=== PATIENT | male | born 1965 ===

== ENCOUNTER → 2022-09-11 | Outpatient (CLI) | payer MEDICARE, OTHER ==
[~2022-09-11] MED LIST: CYCL10 PO; NAPR500 PO; OXYACE5T PO
[2022-09-18 16:11] LABS: CARBOXY-THC 224 (.)
== END ==
LOC: LAB SHORT 16:49 → LAB 16:49
PROVIDERS: Family Medicine
DX: Z79.899 Other long term (current) drug therapy (principal)
CPT/HCPCS: G0480

== ENCOUNTER → 2024-02-22 | Outpatient (CLI) | payer MEDICARE, OTHER | END | disposition home or self-care (01) | LOC: LAB 12:40 → LAB SHORT 12:40 | DX: L03.115 Cellulitis of right lower limb (principal); R60.0 Localized edema ==

== ENCOUNTER 2024-11-18 01:44 | Inpatient (IN) | payer MEDICARE, OTHER ==
[~2024-11-18] VITALS: Ht 170.2 cm; Wt 91.1 kg
[2024-11-18] MEDS ORDERED: Aspirin 81 MG Chew PO ONE (02:05)
[2024-11-18] MEDS ORDERED: BUPRENORPHINE HC2 MG SL (02:05)
[2024-11-18 02:07] LABS: Base Excess Venous 6.9 mmol/L; Bicarbonate Venous 27.9 mmol/L (24.0-30.0); PCO2 Venous 59.8 mmHg (38-42); pH Blood Venous 7.35 (7.34-7.37)
[2024-11-18 02:27] LABS: BASOPHILS ABSOLUTE AUTO 0.03 K/mm3 (0.00-0.23); BASOPHILS PERCENT AUTO 0 % (0-2); EOSINOPHILS ABSOLUTE AUTO 0.19 K/mm3 (0.00-0.68); EOSINOPHILS PERCENT AUTO 2 % (0-6); Hematocrit 54.6 % (37.0-53.0); Hemoglobin 17.9 g/dL (13.5-17.5); IMMATURE GRAN ABSOLUTE AUTO 0.03 K/mm3 (0.00-0.10); IMMATURE GRAN PERCENT AUTO 0 % (0-1); LYMPHOCYTES ABSOLUTE AUTO 2.53 K/mm3 (0.84-5.20); LYMPHOCYTES PERCENT AUTO 20 % (21-46); MONOCYTES ABSOLUTE AUTO 1.16 K/mm3 (0.16-1.47); MONOCYTES PERCENT AUTO 9 % (4-13); Magnesium, Blood 1.8 mg/dL (1.6-2.4); Mean Corpuscular HGB 30.8 pg (26.0-34.0); Mean Corpuscular HGB Conc 32.8 g/dL (31.5-36.5); Mean Corpuscular Volume 94 fL (80-100); Mean Platelet Volume 10.2 fL (9.1-12.4); NEUTROPHILS ABSOLUTE AUTO 8.45 K/mm3 (1.96-9.15); NEUTROPHILS PERCENT AUTO 68 % (41-73); Platelet Count 229 K/mm3 (150-400); RDW Coefficient Variation 13.2 % (11.7-14.2); RDW Standard Deviation 45.5 fL (35.1-46.3); Red Blood Cell Count 5.82 M/mm3 (4.30-5.90); White Blood Cell Count 12.39 K/mm3 (4.00-11.30)
[2024-11-18 02:44] LABS: Albumin, Blood 3.5 g/dL (3.4-5.0); Albumin/Globulin Ratio 0.9 (0.8-1.8); Bilirubin, Total 0.6 mg/dL (0.1-1.0); Bun/Creatinine Ratio 14.9 (12.0-20.0); Calcium, Blood 8.9 mg/dL (8.5-10.1); Creatinine, Blood 0.94 mg/dL (0.60-1.20); Globulin, Blood 3.8 g/dL (2.2-4.0); Potassium, Blood 4.5 mmol/L (3.5-5.5); Total Protein, Blood 7.3 g/dL (6.4-8.2)
[2024-11-18 03:33] LABS: CORONAVIRUS COVID-19 AG Negative (NEGATIVE); INFLUENZA A AG Negative (NEGATIVE); INFLUENZA B AG Negative (NEGATIVE)
[2024-11-18] MEDS ORDERED: Nitroglycerin 0.4 MG SUBL SL PRN (04:20)
[2024-11-18] MEDS ORDERED: FLU VACC TS2024-25(6MOS UP)/PF 45 MCG/0.5 ML SYRINGE IM ONE (04:20)
[2024-11-18] MEDS ORDERED: Ondansetron HCl 2 MG / ML 2ML Vial IV PRN (04:20)
[2024-11-18 05:45] LABS: BASOPHILS ABSOLUTE AUTO 0.03 K/mm3 (0.00-0.23); BASOPHILS PERCENT AUTO 0 % (0-2); EOSINOPHILS ABSOLUTE AUTO 0.08 K/mm3 (0.00-0.68); EOSINOPHILS PERCENT AUTO 1 % (0-6); Hematocrit 51.9 % (37.0-53.0); Hemoglobin 17.2 g/dL (13.5-17.5); IMMATURE GRAN ABSOLUTE AUTO 0.03 K/mm3 (0.00-0.10); IMMATURE GRAN PERCENT AUTO 0 % (0-1); LYMPHOCYTES ABSOLUTE AUTO 1.08 K/mm3 (0.84-5.20); LYMPHOCYTES PERCENT AUTO 9 % (21-46); MONOCYTES ABSOLUTE AUTO 1.15 K/mm3 (0.16-1.47); MONOCYTES PERCENT AUTO 10 % (4-13); Mean Corpuscular HGB 30.9 pg (26.0-34.0); Mean Corpuscular HGB Conc 33.1 g/dL (31.5-36.5); Mean Corpuscular Volume 93 fL (80-100); Mean Platelet Volume 9.9 fL (9.1-12.4); NEUTROPHILS ABSOLUTE AUTO 9.49 K/mm3 (1.96-9.15); NEUTROPHILS PERCENT AUTO 80 % (41-73); Platelet Count 193 K/mm3 (150-400); RDW Coefficient Variation 13.1 % (11.7-14.2); RDW Standard Deviation 45.1 fL (35.1-46.3); Red Blood Cell Count 5.57 M/mm3 (4.30-5.90); White Blood Cell Count 11.86 K/mm3 (4.00-11.30)
[2024-11-18 06:14] LABS: Alanine Aminotransfer (ALT/SGP 20 U/L (12-78); Albumin, Blood 3.3 g/dL (3.4-5.0); Alk Phos 66 U/L (50-136); Anion Gap 7 mmol/L (3-11); Aspartate Aminotrans (AST/SGOT 21 U/L (12-37); Bilirubin, Total 0.6 mg/dL (0.1-1.0); Blood Urea Nitrogen 12 mg/dL (8-24); Bun/Creatinine Ratio 16.7 (12.0-20.0); CHOL/HDL RATIO 2.1; CO2, Blood 33 mmol/L (21-32); Calcium, Blood 8.6 mg/dL (8.5-10.1); Chloride, Blood 105 mmol/L (98-108); Cholesterol 188 mg/dL (50-200); Creatinine, Blood 0.72 mg/dL (0.60-1.20); Globulin, Blood 3.3 g/dL (2.2-4.0); Glomerular Filtration Rate 106 (60-); Glucose, Blood 147 mg/dL (70-99); HDL Cholesterol 89 mg/dL (>39); LDL/HDL RATIO 0.9; Low Density Lipoprotein Chol 84 mg/dL (0-110); Magnesium, Blood 1.7 mg/dL (1.6-2.4); Potassium, Blood 4.6 mmol/L (3.5-5.5); Sodium, Blood 140 mmol/L (136-145); Thyroid Stimulating Hormone 0.692 uIU/mL (0.360-4.800); Total Protein, Blood 6.6 g/dL (6.4-8.2); Triglycerides 74 mg/dL (30-160); Very Low Density Lipoprot Chol 14 mg/dL (6-32)
[2024-11-18] MEDS ORDERED: Aspirin 81 MG Chew PO SCH (09:00)
[2024-11-18 12:56] VITALS: BP 142/80
[2024-11-18] MEDS ORDERED: IBUP800 PO (13:02)
[2024-11-18] MEDS ORDERED: ALPR1 PO (13:03)
--- NOTE | 2024-11-18 14:37 | NUR ---
NOTE: THIS NURSE GAVE PT'S SON, RENE, AN UPDATE. PT SAID IT WAS OKAY TO GIVE INFORMATION
[2024-11-18] MEDS ORDERED: ChlordiazePOXIDE 25 MG Cap PO PRN (15:45)
[2024-11-18] MEDS ORDERED: LORazepam 2 MG/ML 1ML Injection IV PRN (15:45)
[2024-11-18] MEDS ORDERED: Thiamine HCl 100 MG Tab PO SCH (16:00)
[2024-11-18] MEDS ORDERED: Folic Acid 1 MG TAB PO SCH (16:00)
[2024-11-18 16:56] VITALS: BP 167/97
[2024-11-18 16:57] VITALS: BP 163/98
[2024-11-18] MEDS ORDERED: buprenorphine HCL 2 MG TAB.SUBL SL SCH (17:00)
[2024-11-18] MEDS ORDERED: buprenorphine HCL 2 MG TAB.SUBL SL ONE (17:25)
--- NOTE | 2024-11-18 17:52 | NUR ---
SHIFT SUMMARY PT AOX4, SBA BUT INDEPENDENT AT HOME. CALLS AND MAKES NEEDS KNOWN. CIWAS IN PROGRESS. PT HAS HAD NO CP SINCE ADMIT TO THE FLOOR, NO SOB. FAMILY UPDATED. FRIEND AND DAUGHTER AT THE BS. HEPARIN DRIP ORDERED, WAITING ON LAB RESULTS AND PHARMACY TO INITIATE. PT REPOSITIONS SELF IN BED, NO ACUTE EVETS PER TELE SINCE THE ADMIT. CALL LIGHT WITHIN REACH, BED LOCKED AND IN THE LOWEST POSITION. WILL REPORT TO ONCOMING NURSE.
[2024-11-18] MEDS ORDERED: Etomidate 2MG / ML 10ML Vial IV ONE (18:19)
[2024-11-18] MEDS ORDERED: Rocuronium Bromide 10 MG/ML 5ML Injection IV ONE (18:19)
[2024-11-18] MEDS ORDERED: Midazolam HCl 1MG / ML 2ML Vial IV ONE (18:19)
[2024-11-18 18:24] LABS: Anti-Xa UFH, PHA Monitoring <0.10 IU/mL; International Normalized Ratio 1.06; Prothrombin Time Results 11.3 Sec (9.7-11.5)
[2024-11-18] MEDS ORDERED: Heparin Sodium 5000 Units/ML 1ML MDV IV ONE (18:30)
[2024-11-18] MEDS ORDERED: Heparin Sodium,Porcine/0.5 NS 500 ML IV SCH (18:30)
[2024-11-18 21:08] VITALS: BP 153/86
[2024-11-19] VITALS (54 sets, daily range): BP systolic 135–198; BP diastolic 79–138
[2024-11-19 01:10] LABS: Hematocrit 54.7 % (37.0-53.0); Hemoglobin 17.4 g/dL (13.5-17.5); Mean Corpuscular HGB 30.6 pg (26.0-34.0); Mean Corpuscular HGB Conc 31.8 g/dL (31.5-36.5); Mean Corpuscular Volume 96 fL (80-100); Mean Platelet Volume 10.3 fL (9.1-12.4); Platelet Count 193 K/mm3 (150-400); RDW Coefficient Variation 13.1 % (11.7-14.2); RDW Standard Deviation 46.9 fL (35.1-46.3); Red Blood Cell Count 5.69 M/mm3 (4.30-5.90); White Blood Cell Count 9.56 K/mm3 (4.00-11.30)
[2024-11-19 01:29] LABS: Bun/Creatinine Ratio 15.4 (12.0-20.0); Calcium, Blood 9.2 mg/dL (8.5-10.1); Creatinine, Blood 0.71 mg/dL (0.60-1.20); Potassium, Blood 5.5 mmol/L (3.5-5.5)
[2024-11-19] MEDS ORDERED: Dose Adjust by Pharmacy XX STA ×3 (01:42→19:04)
--- NOTE | 2024-11-19 05:41 | NUR ---
SHIFT SUMMARY 59 YR M ADMITTED ON 11/18/24. FULL CODE. PT HAS FELT PROGRESSIVELY WORSE SINCE THE BEGINNING OF THIS SHIFT. HE HAS BEEN MEDICATED THREE TIMES PER CIWA SCORES. HE HAS SLEPT OFF AND ON THROUGHOUT THIS SHIFT BUT IS AGITATED AND PAINFUL WHEN HE WAKES. HE C/O HEADACHE, N/V. HE YELLS OUT TO GET STAFF ATTENTION RATHER THAN USING THE CALL LIGHT SUGGESTED. HEPARIN HAS BEEN INFUSING ALL SHIFT AND RATE STAYED THE SAME AFTER LABS THIS A.M. WILL CONTINUE TO MONITOR AND REPORT TO DAY SHIFT. BED IN LOW POSITION AND CALL LIGHT IN REACH.
[2024-11-19] MEDS ORDERED: Heparin Sodium 5000 Units/ML 1ML MDV IV ONE (08:35)
[2024-11-19] MEDS ORDERED: Enoxaparin 40 MG/0.4 ML SYR SC SCH (09:00)
[2024-11-19] MEDS ORDERED: Metoprolol Tartrate 1 MG/ML 5 ML VIAL IV ONE (10:25)
[2024-11-19] MEDS ORDERED: Metoprolol Tartrate 1 MG/ML 5 ML VIAL IV STA (10:28)
[2024-11-19] MEDS ORDERED: Metoprolol Tartrate 1 MG/ML 5 ML VIAL IV PRN (10:35)
[2024-11-19 10:49] LABS: Base Excess Venous 6.4 mmol/L; Bicarbonate Venous 24.6 mmol/L (24.0-30.0); PCO2 Venous > 105 mmHg (38-42)
[2024-11-19 10:50] LABS: pH Blood Venous 7.11 (7.34-7.37)
--- NOTE | 2024-11-19 11:17 | NUR ---
ARRIVAL TO ICU/INTUBATION 1117: ARRIVAL TO ICU 15. PT ON BIPAP 14/8/80% 1120: DR REA AT BEDSIDE. 1133: DR REA AND RT AT HEAD OF BED IN PREPARATION FOR INTUBATION. 30MG ETOMIDATE ADMINISTERED. 1136: 100MG LORENZO ADMINISTERED. POSITIVE COLOR CHANGE. 8.0/26CM AT UPPER TEETH. 1139: 4MG VERSED ADMINISTERED 1145: VENT SETTINGS AC/VC 20/450/5/100% 1146: OG PLACED 1156: CXR COMPLETE. PLACEMENT VERIFIED BY DR REA
[2024-11-19] MEDS ORDERED: propofoL 100 ML IV ONE (11:20)
[2024-11-19] MEDS ORDERED: propofoL 100 ML IV SCH (11:25)
[2024-11-19] MEDS ORDERED: buprenorphine HCL 2 MG TAB.SUBL SL SCH (12:00)
[2024-11-19] MEDS ORDERED: Nitroglycerin/D5W 250 ML IV SCH (12:35)
[2024-11-19 12:53] LABS: Base Excess Venous 8.1 mmol/L; Bicarbonate Venous 29.3 mmol/L (24.0-30.0); PCO2 Venous 63.2 mmHg (38-42); pH Blood Venous 7.34 (7.34-7.37)
[2024-11-19] MEDS ORDERED: FentaNYL Citrate 50 MCG/ML 2 ML Injection ONE (12:58)
[2024-11-19] MEDS ORDERED: Midazolam HCl 1MG / ML 2ML Vial ONE (13:09)
[2024-11-19] MEDS ORDERED: FentaNYL Citrate 50 MCG/ML 2 ML Injection IV PRN (13:15)
[2024-11-19] MEDS ORDERED: Midazolam HCl 1MG / ML 2ML Vial IV PRN (13:15)
[2024-11-19] MEDS ORDERED: Doxycycline Hyclate 100 MG in Dextrose 5% 250 ML IV SCH (14:58)
[2024-11-19] MEDS ORDERED: CefTRIAXone Sodium 1,000 MG in NS 100 ML IV SCH (14:58)
--- NOTE | 2024-11-19 15:07 | NUR ---
UPDATE PROVIDED TO FAMILY S/P RAPID RESPONSE AND TRANSFER TO ICU SPOKE WITH PT'S SON RENE GAITAN ([phone]), DTR MARIUSZ GAITAN ([phone]) AND FRIEND LISA SAM ([phone]) ALL BY PHONE. UPDATED ON PT'S NEED TO BE TRANSFERRED TO ICU 15 AND CHANGE IN RESPIRATORY STATUS, REQUIRING INTUBATION FOR AIRWAY SUPPORT. LISA REPORTS SHE IS FEEDING AND CHECKING ON KING'S DOG "GHOST". SHE WILL CONTINUE TO CARE FOR PT'S DOG. PC TO REMAIN AVAILABLE NEEDED.
--- NOTE | 2024-11-19 18:37 | NUR ---
SHIFT SUMMARY PT REMAINED INTUBATED AND SEDATED T/O ENTIRETY OF SHIFT. UNABLE TO FOLLOW COMMANDS. AFEBRILE. PROPOFOL INFUSING AT 40 MCG/KG/MIN, RASS -4. CONTINUOUS CARDIAC MONITORING IN PLACE SHOWS SR, BP STABLE WITH NITRO INFUSING AT 10 MCG/MIN. VENT SETTINGS A/C VC 20/450/5/35%. ETT 8.0, 26 AT THE GUMS. O2 SATURATIONS > 92%. TEMP SANTORO PLACED THIS SHIFT WITH TEA COLORED URINE OUT. NO BM THIS SHIFT. PIV TO RAC, LHAND. POWERGLIDE TO MUKUND. HEPARIN INFUSING AT 22 U/KG/HR. SON AND DAUGHTER BOTH TO BEDSIDE DURING THIS SHIFT, UPDATED ON PLAN OF CARE. WILL CONTINUE TO MONITOR AND REPORT TO ONCOMING RN.
[2024-11-19 19:18] LABS: Bun/Creatinine Ratio 18.3 (12.0-20.0); Calcium, Blood 9.1 mg/dL (8.5-10.1); Creatinine, Blood 0.71 mg/dL (0.60-1.20); Potassium, Blood 3.7 mmol/L (3.5-5.5)
[2024-11-19] MEDS ORDERED: Cetylpyridinium Chloride 1 EA MISC MT SCH (20:00)
[2024-11-19] MEDS ORDERED: Midazolam HCL 50 MG in NS 40 ML IV PRN (22:45)
[2024-11-20] VITALS (94 sets, daily range): BP systolic 113–179; BP diastolic 04–131
[2024-11-20] MEDS ORDERED: Hydrogen Peroxide 1.5 % Solution MT SCH
[2024-11-20 00:22] LABS: Acinetobacter baumannii DNA Not Detected copy/mL (NOT DETECT); Enterobacter cloacae DNA Not Detected copy/mL (NOT DETECT); Escherichia coli DNA Not Detected copy/mL (NOT DETECT); Haemophilus influenzae DNA Detected Bin >=10^7 copy/mL (NOT DETECT); Klebsiella aerogenes DNA Not Detected copy/mL (NOT DETECT); Klebsiella oxytoca DNA Not Detected copy/mL (NOT DETECT); Klebsiella pneumoniae DNA Not Detected copy/mL (NOT DETECT); Moraxella catarrhalis DNA Not Detected copy/mL (NOT DETECT); Proteus sp DNA Not Detected copy/mL (NOT DETECT); Pseudomonas aeruginosa DNA Not Detected copy/mL (NOT DETECT); Serratia marcescens DNA Not Detected copy/mL (NOT DETECT); Staphylococcus aureus DNA Not Detected copy/mL (NOT DETECT); Streptococcus agalactiae DNA Not Detected copy/mL (NOT DETECT); Streptococcus pneumoniae DNA Detected Bin 10^5 copy/mL (NOT DETECT); Streptococcus pyogenes DNA Not Detected copy/mL (NOT DETECT)
[2024-11-20 00:23] LABS: Adenovirus DNA Not Detected (NOT DETECT); Chlamydia pneumonia Not Detected (NOT DETECT); Human Coronavirus RNA Not Detected (NOT DETECT); Legionella pneumophila Not Detected (NOT DETECT); Mycoplasma pneumoniae Not Detected (NOT DETECT)
[2024-11-20 03:19] LABS: Hematocrit 47.7 % (37.0-53.0); Mean Corpuscular HGB Conc 33.5 g/dL (31.5-36.5); Mean Corpuscular Volume 92 fL (80-100); Mean Platelet Volume 10.7 fL (9.1-12.4); Platelet Count 213 K/mm3 (150-400); RDW Coefficient Variation 13.2 % (11.7-14.2); RDW Standard Deviation 44.3 fL (35.1-46.3); Red Blood Cell Count 5.16 M/mm3 (4.30-5.90); White Blood Cell Count 14.73 K/mm3 (4.00-11.30)
[2024-11-20 03:36] LABS: Albumin, Blood 2.8 g/dL (3.4-5.0); Albumin/Globulin Ratio 0.9 (0.8-1.8); Bilirubin, Total 1.1 mg/dL (0.1-1.0); Creatinine, Blood 0.83 mg/dL (0.60-1.20); Globulin, Blood 3.2 g/dL (2.2-4.0); Potassium, Blood 3.4 mmol/L (3.5-5.5)
[2024-11-20 03:54] LABS: Magnesium, Blood 1.6 mg/dL (1.6-2.4)
[2024-11-20] MEDS ORDERED: Potassium Chloride 40 MEQ IV SCH (04:05)
[2024-11-20] MEDS ORDERED: Potassium Chloride 40 MEQ in NS 250 ML IV ONE (05:00)
[2024-11-20] MEDS ORDERED: Pantoprazole Sodium 40 MG Injection IV SCH (06:00)
--- NOTE | 2024-11-20 06:30 | NUR ---
SHIFT SUMMARY: PT IS VENTILATED. HE IS REQUIRING VERSED GTT AND PROPOFOL FOR SEDATION. HE WAS EXHIBITING TONICITY AND WAS FEBRILE PRIOR TO THE VERSED GTT. PT HAS BEEN IN A SINUS RHYTHM WITH A RATE 80S-90S. HE REMAINS ON A NITRO GTT FOR HYPERTENSION. HE HAS A TEMP SANTORO IN PLACE WITH ADEQUATE OUTPUT. HIS OG TUBE IS SET TO NIK WITH 500ML BILE OUTPUT.
[2024-11-20] MEDS ORDERED: Mag Sulfate 1 GM/D5% 100ML 100 ML IV STA (09:40)
[2024-11-20] MEDS ORDERED: Dose Adjust by Pharmacy XX STA (09:42)
[2024-11-20] MEDS ORDERED: AmLODIPine Besylate 5 MG Tab PO SCH (10:00)
[2024-11-20 14:51] LABS: Human Metapneumovirus RNA Not Detected (NOT DETECT); Influenza virus A RNA Not Detected (NOT DETECT); Influenza virus B RNA Not Detected (NOT DETECT); Parainfluenza virus RNA Not Detected (NOT DETECT); Respiratory syncytial Vir RNA Not Detected (NOT DETECT); Rhinovirus+Enterovirus RNA Not Detected (NOT DETECT)
--- NOTE | 2024-11-20 17:28 | NUR ---
SHIFT SUMMARY NO ACUTE CHANGES THIS SHIFT. PT REMAINS INTUBATED AND SEDATED. PT VENT SETTINGS REMAIN AC 20, TV 450, PEEP 5, FIO2 35%. PT WITH MINIMAL THICK SECRETIONS WITH ETT SUCTION. PT SEDATED WITH PROPOFOL AT 40 MCG/KG/MIN, AND VERSED AT 4 MG/HR. PT MED WITH ATIVAN PRN PER EMAR. PT WITH EPISODES OF TREMORS NOTED TO BUE'S WITH TURNS/NOXIOUS STIMULI. PT WITH COUGH AND GAG PRESENT WITH SUCTION. PT MOVES ALL EXTREMITIES TO NOXIOUS STIMULI. OGT IN PLACE, CLAMMPED AT THIS TIME. PIV'S AND PG IN PLACE. NITRO GTT TITRATED DOWN TO 35 MCG/MIN. VITAL SIGNS HAVE REMAINED STABLE. HEPARIN INFUSING AT 24 UNITS/KG/HR. SANTORO TEMP PROBE REMAINS IN PLACE WITH YELLOW/GREEN URINE OUTPUT NOTED. SBW RESTRAINTS IN PLACE. PT DAUGHTER AT BEDSIDE THIS MORNING. WILL CONTINUE TO MONITOR AND REPORT OFF TO ONCOMING RN.
--- NOTE | 2024-11-20 23:05 | NUR ---
PT AWAKENS WITH ANY STIMULI. BECOMES ANXIOUS. FIGHTS AGAINS RESTRAINTS. DOES CALM SHORTLY ON CURRENT SEDATION. WILL CONTINNUE TO MONITOR .
[2024-11-21] VITALS (75 sets, daily range): BP systolic 119–172; BP diastolic 84–115
[2024-11-21 05:06] LABS: Hemoglobin 16.5 g/dL (13.5-17.5); Mean Corpuscular HGB 30.9 pg (26.0-34.0); Mean Corpuscular HGB Conc 34.4 g/dL (31.5-36.5); Mean Corpuscular Volume 90 fL (80-100); Mean Platelet Volume 10.1 fL (9.1-12.4); Platelet Count 195 K/mm3 (150-400); RDW Coefficient Variation 13.6 % (11.7-14.2); RDW Standard Deviation 44.6 fL (35.1-46.3); Red Blood Cell Count 5.34 M/mm3 (4.30-5.90); White Blood Cell Count 11.93 K/mm3 (4.00-11.30)
[2024-11-21 05:30] LABS: Magnesium, Blood 1.9 mg/dL (1.6-2.4)
[2024-11-21] MEDS ORDERED: Clarify Drug Order XX ONE (05:45)
[2024-11-21 05:46] LABS: Albumin, Blood 2.7 g/dL (3.4-5.0); Albumin/Globulin Ratio 0.8 (0.8-1.8); Bilirubin, Total 0.8 mg/dL (0.1-1.0); Bun/Creatinine Ratio 10.2 (12.0-20.0); Calcium, Blood 8.5 mg/dL (8.5-10.1); Creatinine, Blood 0.79 mg/dL (0.60-1.20); Globulin, Blood 3.4 g/dL (2.2-4.0); Phosphorus, Blood 0.7 mg/dL (2.5-4.9); Total Protein, Blood 6.1 g/dL (6.4-8.2)
[2024-11-21] MEDS ORDERED: Mag Sulfate 1 GM/D5% 100ML 100 ML IV ONE (06:05)
[2024-11-21] MEDS ORDERED: Potassium Phosphate Dibasic 30 MM in Dextrose 5% 500 ML IV ONE (06:05)
[2024-11-21] MEDS ORDERED: Potassium Phos/Sodium Phos 250 MG PACK PO SCH (09:00)
[2024-11-21] MEDS ORDERED: HydroCHLOROthiazide 25 mg Tab PO SCH (09:00)
[2024-11-21] MEDS ORDERED: Thiamine HCl 100 MG in NS 50 ML IV SCH (12:00)
[2024-11-21] MEDS ORDERED: Lactobacil 2-S.Thermo-Bifido 1 1 Cap PT SCH (21:00)
[2024-11-22] VITALS (90 sets, daily range): BP systolic 103–159; BP diastolic 52–111
[2024-11-22 05:02] LABS: Hematocrit 45.5 % (37.0-53.0); Hemoglobin 15.8 g/dL (13.5-17.5); Mean Corpuscular HGB Conc 34.7 g/dL (31.5-36.5); Mean Corpuscular Volume 89 fL (80-100); Mean Platelet Volume 10.1 fL (9.1-12.4); Platelet Count 183 K/mm3 (150-400); RDW Coefficient Variation 13.8 % (11.7-14.2); RDW Standard Deviation 45.6 fL (35.1-46.3); White Blood Cell Count 10.66 K/mm3 (4.00-11.30)
--- NOTE | 2024-11-22 05:26 | NUR ---
HEPARIN ON HOLD FOR 1 HOUR PER PHARMACY ORDER
--- NOTE | 2024-11-22 05:30 | NUR ---
SHIFT SUMMERY PT REMAINS INTUBATED W/ETT INTACT AND PATENT TO VENT. PT CLAMPS DOWN ON TUBE AND DOESN'T PULL HIS TIDAL VOLUMES DESPITE PRN MEDICATIONS AND PROPOFOL DRIP WHEN STIMULATED, EVEN W/SMALL TURNS. PT HAS BEEN SR ON THE DENTAL CERAMIST. BP WNL. AFEBRILE. OXYGEN SAT >95%. SANTORO CATH INTACT PATENT AND DRAINING. PT IS TREMULOUS WHEN STIMULATED WELL. HE HAS NOT FOLLOWED COMMANDS FOR ME THIS SHIFT.
[2024-11-22] MEDS ORDERED: Dose Adjust by Pharmacy XX STA (05:34)
[2024-11-22 05:45] LABS: Magnesium, Blood 1.7 mg/dL (1.6-2.4)
[2024-11-22 06:12] LABS: Bun/Creatinine Ratio 8.1 (12.0-20.0); Creatinine, Blood 0.74 mg/dL (0.60-1.20); Phosphorus, Blood 3.5 mg/dL (2.5-4.9); Potassium, Blood 2.3 mmol/L (3.5-5.5)
[2024-11-22] MEDS ORDERED: Magnesium Sulf 2 GM/Water 50ML 50 ML IV ONE (06:45)
--- NOTE | 2024-11-22 06:48 | NUR ---
HEPARIN GTT RESTARTED AT 21U/KG/HR PER PHARMACY ORDER. SHAQUILLE MEADOWS VERIFIED. CRITICAL LABS CALLED TO DR NAILS, SEE ORDERS
[2024-11-22] MEDS ORDERED: Potassium Chloride 40 MEQ in NS 250 ML IV ONE (07:08)
[2024-11-22] MEDS ORDERED: dexmedeTOMIDine 100 ML IV SCH (09:20)
[2024-11-22] MEDS ORDERED: Potassium Chl 20MEQ/Water100ML 100 ML IV ONE (11:10)
[2024-11-22] MEDS ORDERED: Enoxaparin 40 MG/0.4 ML SYR SC SCH (13:00)
[2024-11-22] MEDS ORDERED: Folic Acid 1 MG TAB PT SCH (13:00)
[2024-11-22 13:15] LABS: Bun/Creatinine Ratio 10.2 (12.0-20.0); Calcium, Blood 8.3 mg/dL (8.5-10.1); Creatinine, Blood 0.69 mg/dL (0.60-1.20); Potassium, Blood 3.2 mmol/L (3.5-5.5)
--- NOTE | 2024-11-22 17:27 | NUR ---
SHIFT SUMMARY PATIENT REMAINS ON VENTILATOR AC/VC RATE 20, PEEP 5, TIDAL VOLUME 450, FI02 30%. PRECEDEX ADDED, CURRENTLT INFUSING AT 0.8MCG, HEART RATE STABLE IN MID/HIGH 50'S. PROPOFOL WEANED DOWN TO 15MCG. CURRENTLY RESPONDS TO PAIN, HEPARIN DISCONTINUED BY VITALIY DUE TO LOW SUSPECT OF PE. BLOOD PRESSURES STABLE WITH SYSTOLICS 120'S-130'S. CONTINUED ATIVAN AND LIBRIUM DUE TO TREMORS/ANXIETY/CIWA PROTOCOL. SANTORO IN PLACE WITH ADEQUATE OUTPUT, URINE YELLOW.
[2024-11-23] VITALS (42 sets, daily range): BP systolic 94–163; BP diastolic 60–99
--- NOTE | 2024-11-23 05:24 | NUR ---
SHIFT SUMMERY PT HAS REMAINED INTUBATED W/ETT INTACT AND PATENT TO THE VENT. OXYGEN SAT >92%. PT HAS BEEN LESS TREMULOUS AND TOLERATED TURNS/BATH BETTER THAN THE NIGHT PRIOR W/THE ADDITION OF PRECEDEX. PT HAS BEEN SB ON THE PRODUCT SAFETY OFFICER. BP WNL. SEE [facility] FOR DRIP RATES. HE HAS BEEN AFEBRILE. HE HAS OPENED HIS EYES W/STIMULATION AND DID SLIGHTLY SQUEEZE WITH BOTH HANDS TO DIRECTION. SANTORO CATH IS INTACT PATENT AND DRAINING. OG TUBE IS CLAMPED.
[2024-11-23 05:33] LABS: Hemoglobin 16.9 g/dL (13.5-17.5); Mean Corpuscular HGB 31.1 pg (26.0-34.0); Mean Corpuscular HGB Conc 35.2 g/dL (31.5-36.5); Mean Corpuscular Volume 88 fL (80-100); Mean Platelet Volume 10.3 fL (9.1-12.4); Platelet Count 207 K/mm3 (150-400); RDW Coefficient Variation 14.1 % (11.7-14.2); RDW Standard Deviation 45.1 fL (35.1-46.3); Red Blood Cell Count 5.44 M/mm3 (4.30-5.90); White Blood Cell Count 9.34 K/mm3 (4.00-11.30)
[2024-11-23 05:58] LABS: Albumin, Blood 2.5 g/dL (3.4-5.0); Albumin/Globulin Ratio 0.7 (0.8-1.8); Bilirubin, Total 0.9 mg/dL (0.1-1.0); Bun/Creatinine Ratio 13.3 (12.0-20.0); Creatinine, Blood 0.68 mg/dL (0.60-1.20); Globulin, Blood 3.7 g/dL (2.2-4.0); Magnesium, Blood 1.7 mg/dL (1.6-2.4); Phosphorus, Blood 3.5 mg/dL (2.5-4.9); Potassium, Blood 3.2 mmol/L (3.5-5.5); Total Protein, Blood 6.2 g/dL (6.4-8.2)
[2024-11-23] MEDS ORDERED: Potassium Chloride 40 MEQ in NS 250 ML IV ONE (06:50)
[2024-11-23] MEDS ORDERED: Magnesium Sulf 2 GM/Water 50ML 50 ML IV ONE (06:50)
[2024-11-23] MEDS ORDERED: AmLODIPine Besylate 5 MG Tab PT SCH (09:00)
[2024-11-23] MEDS ORDERED: Potassium Chloride 20 MEQ/15 ML UDC PT SCH (11:00)
[2024-11-23] MEDS ORDERED: Thiamine HCl 100 MG Tab PT SCH (11:00)
--- NOTE | 2024-11-23 12:57 | NUR ---
REASSESSMENT PT WAS FOLLOWING DIRECTIONS WHILE PROPOFOL AND PRECEDEX WERE INFUSING SO WHEN DR. RAHMAN ROUNDED, PROPOFOL STOPPED AND WEANING TRIAL BEGAN. WITH PRECEDEX INFUSING, PT WAS AWAKE, TRYING TO POINT TO THINGS ON THE PICTURE BOARD TO COMMUNICATE. DR. RAHMAN INFORMED AND GAVE ORDER TO EXTUBATE. PT EXTUBATED AT 1145 TO 2L/NC. SPO2 WAS 98% SO O2 TURNED OFF, BUT SPO2 DROPPED TO 87%. TUEND BACK ON TO 1L/NC, CURRENTLY 98%. LUNGS ARE CLEAR, SR INT HE 80S. PRECEDEX HAS BEEN TITRATED OFF SINCE EXTUBATED. SANTORO DRAINING DARK YELLOW URINE. PT'S CHILDREN ARE AT THE BEDSIDE AND WERE UPDATED.
--- NOTE | 2024-11-23 17:10 | NUR ---
SHIFT SUMMARY PT HAS REMAINED ON 1L/NC SINCE BEING EXTUBATED. HE IS DROWSY, BUT ORIENTED. FORGETFUL. ASSISTED PT TO CHAIR AND RESPONSES TO INSTRUCTIONS TO MOVE HIS FEET WERE QUITE DELAYED. LUNGS ARE CLEAR. COUGHED UP A SMALL AMT OF LIGHT GREEN SPUTUM. SR WITH RATE IN THE 90S, MAP 97. SANTORO WAS CAUSING PT A LOT OF IRRITATION SO IT WAS REMOVED. PT PASSED NURSE SWALLOW EVAL AND IS TOLERATING LIQUIDS. FAMILY MEMBERS AT THE BEDSIDE THIS AFTERNOON WERE UPDATED.
[2024-11-23] MEDS ORDERED: Acetaminophen 500 MG Tab PO PRN (20:05)
[2024-11-23] MEDS ORDERED: Benzocaine Oral Spray 0.5ML UD MT PRN (20:05)
[2024-11-24] VITALS (14 sets, daily range): BP systolic 143–173; BP diastolic 76–101
[2024-11-24 05:46] LABS: PCO2 Arterial 47.9 mmHg (35-45); PO2 Arterial 64.8 mmHg (80-100); pH Blood Arterial 7.34 (7.35-7.45)
[2024-11-24 06:25] LABS: Hematocrit 49.7 % (37.0-53.0); Hemoglobin 16.7 g/dL (13.5-17.5); Mean Corpuscular HGB 30.9 pg (26.0-34.0); Mean Corpuscular HGB Conc 33.6 g/dL (31.5-36.5); Mean Corpuscular Volume 92 fL (80-100); Mean Platelet Volume 10.1 fL (9.1-12.4); Platelet Count 213 K/mm3 (150-400); RDW Coefficient Variation 13.8 % (11.7-14.2); RDW Standard Deviation 47.1 fL (35.1-46.3); Red Blood Cell Count 5.41 M/mm3 (4.30-5.90); White Blood Cell Count 8.62 K/mm3 (4.00-11.30)
[2024-11-24 06:47] LABS: Calcium, Blood 9.3 mg/dL (8.5-10.1); Creatinine, Blood 0.69 mg/dL (0.60-1.20); Magnesium, Blood 1.9 mg/dL (1.6-2.4); Potassium, Blood 3.6 mmol/L (3.5-5.5)
--- NOTE | 2024-11-24 06:47 | NUR ---
SHIFT SUMMERY PT HAS BEEN ALERT, ORIENTED TO SELF AND PLACE. HE IS CONFUSED AT TIMES BUT REORIENTES EASILY. HE HAS BEEN ST ON THE SAMPLE PASTER. BP WNL. OXYGEN SAT 94% OR GREATER ON 4-6L NC. PT HAS BEEN AFEBRILE. EXTUBATED YESTERDAY. NO ACUTE CHANGES OVERNIGHT.
[2024-11-24] MEDS ORDERED: CefTRIAXone 1000 MG Vial ONE (07:28)
[2024-11-24] MEDS ORDERED: LORazepam 1 MG Tab PO PRN (08:30)
[2024-11-24] MEDS ORDERED: Sennosides 8.6 MG Tab PO SCH (09:00)
[2024-11-24] MEDS ORDERED: Polyethylene Glycol 3350 17 gm PO SCH (09:00)
--- NOTE | 2024-11-24 11:52 | NUR ---
REASSESSMENT PT HAS BEEN ALERT THIS MORNING, ORIENTED TO PERSON AND PLACE. KNEW THE YEAR, BUT NOT THE MONTH. PT WAS ALSO NAUSEOUS THIS MORNING, SO ZOFRAN GIVEN. RENETTA SCORED 12, MEDICATED WITH IV ATIVAN, THEN SPOKE WITH DR. STANLEY AND RECEIVED ORDERS FOR PO ATIVAN. CIWAA CURRENTLY A 6. RESPONSES CONTINUE TO BE SLOW. LUNGS ARE CLEAR, SR IN THE 90S, MAP 102. VOIDING USING CONDOM CATH. PT WORKED WITH PHYSICAL THERAPY THIS MORNING. GOT UP TO COMMODE TO ATTEMPT BM, BUT ONLY HAD GAS. CURRENTLY IN THE CHAIR.
--- NOTE | 2024-11-24 16:20 | NUR ---
SHIFT SUMMARY PT HAS CONTINUED TO BE ALERT THROUGHOUT THE SHIFT, ORIENTED TO PERSON AND PLACE. DELAYED IN FOLLOWING INSTRUCTIONS. WORKED WITH PHYSICAL AND OCCUPATIONAL THERAPY TODAY. UP TO THE CHAIR ONCE. LUNGS CLEAR, SR IN THE 90S. BT HYPOACTIVE, STARTED BOWEL CARE PER DR. STANLEY'S ORDERS. VOIDING USING CONDOM CATHETER. MULTIPLE VISITORS TODAY.
--- NOTE | 2024-11-24 17:22 | NUR ---
TRANSFER PT TRANSFERRED TO PCU 11. REPORT GIVEN TO ABDIEL MUNOZ. PT'S FAMILY AT BEDSIDE WHEN PT WAS INFORMED OF NEW ROOM.
[2024-11-24 18:14] LABS: Anti-Xa UFH, PHA Monitoring <0.10 IU/mL; International Normalized Ratio 1.02; Prothrombin Time Results 10.9 Sec (9.7-11.5)
--- NOTE | 2024-11-24 18:19 | NUR ---
UPDATE ASSUMED CARE AT APPROXIMATELY 1730. PT AWAKE AND ALERT, ANSWERING QUESTIONS APPROPRIATELY. BP STABLE. HR NSR 90'S. O2 SATS >90% ON 5L NC. PT DENIES ANY PAIN AT THIS TIME. CONDOM CATH IN PLACE. IV FLUSHED AND PATENT. PT ORIENTED TO NEW ROOM AND UNIT. DR. STANLEY CALLED TO NOTIFY THIS RN OF PLAN FOR CTA. PLAN TO START HEPARIN GTT AFTER RESULTS OF CTA ARE IN. WILL REPORT OFF TO ONCOMING RN
[2024-11-24] MEDS ORDERED: Heparin Sodium,Porcine/0.5 NS 500 ML IV SCH (18:20)
--- NOTE | 2024-11-24 21:05 | NUR ---
ASSUMPTION OF CARE/PATIENT UPDATE THIS RN ASSUMED CARE OF PATIENT AT 1900. AT TIME OF SHIFT CHANGE HEP GTT WAS BEING HELD PENDING CTA. AFTER REVIEWING CHART THIS RN NOTED ALLERGY TO CONTRAST; SPOKE TO PATIENT REGARDING ALLERGY AND PT CONFIRMED ANAPHYLAXIS REACTION TO CONTRAST. CALL PLACED TO MD STANLEY REGARDING ALLERGY. ORDER TO CANCEL CTA AND START HEP GTT NOW. HEP GTT STARTED AND PHARMACY NOTIFIED. PT A&O X3 AT TIME OF ASSESSMENT. UNSURE OF DATE/TIME. KNEW YEAR/MONTH. LIVE HANGER REPORTED VISUAL HALLUCINATIONS PREVIOUSLY. PT ASKING THIS RN IF THERE ARE BUGS ON HIS PILLOW WHILE UP ON BSC. PT WITH TREMORS AND REPORTING HEADACHE. MILDLY DIAPHORETIC. CIWA 12 AT THIS TIME. MEDICATED PER EMAR WITH IV ATIVAN. PT HAD NOT PREVIOUSLY RECEIVED ATIVAN SINCE AROUND 0800 TODAY. PT WAS ABLE TO AMBULATE TO BSC WITH 1P ASSIST AND FWW. SLOW WITH MOVEMENTS. GENERALIZED WEAKNESS T/O. CONDOM CATHETER IN PLACE DRAINING MAXWELL COLORED URINE. PT ON 4L VIA NC TO MAINTAIN SPO2. SR ON MONITOR. BP STABLE. AFEBRILE. BED IN LOWEST POSITION AND CALL LIGHT WITHIN REACH.
[2024-11-25 02:28] LABS: Hematocrit 51.5 % (37.0-53.0); Hemoglobin 16.4 g/dL (13.5-17.5); Mean Corpuscular HGB 30.5 pg (26.0-34.0); Mean Corpuscular HGB Conc 31.8 g/dL (31.5-36.5); Mean Corpuscular Volume 96 fL (80-100); Mean Platelet Volume 10.8 fL (9.1-12.4); Platelet Count 184 K/mm3 (150-400); RDW Coefficient Variation 13.6 % (11.7-14.2); RDW Standard Deviation 48.4 fL (35.1-46.3); Red Blood Cell Count 5.37 M/mm3 (4.30-5.90); White Blood Cell Count 9.04 K/mm3 (4.00-11.30)
[2024-11-25 02:41] LABS: Bun/Creatinine Ratio 15.8 (12.0-20.0); Creatinine, Blood 0.57 mg/dL (0.60-1.20); Magnesium, Blood 1.9 mg/dL (1.6-2.4); Phosphorus, Blood 3.6 mg/dL (2.5-4.9)
[2024-11-25] MEDS ORDERED: Dose Adjust by Pharmacy XX STA ×2 (03:18→10:49)
[2024-11-25 03:20] VITALS: BP 154/87
[2024-11-25] MEDS ORDERED: Heparin Sodium 5000 Units/ML 1ML MDV IV ONE ×2 (03:20→10:50)
--- NOTE | 2024-11-25 04:36 | NUR ---
SHIFT SUMMARY SEE PREVIOUS NOTE PT A&O X3-4. CIWA 12 PRIOR TO MEDICATIONS. PT WITH C/O HALLUCINATIONS, TREMORS, HEADACHE, DIAPHORESIS, AND ANXIETY. PT REPORTS GOOD IMPROVEMENT OF SYMPTOMS AFTER IV ATIVAN. HEP GTT INFUSING PER EMAR. ON 5L VIA NC. OTHERWISE VSS. REPOSITIONING PRN. BED IN LOWEST POSITION AND CALL LIGHT WITHIN REACH. THIS RN WILL REPORT TO ONCOMING DAYSHIFT RN.
[2024-11-25 07:39] VITALS: BP 167/94
--- NOTE | 2024-11-25 11:09 | NUR ---
RN assisted Pt to bedside commode. RN stated the patietn need the bedside commode instead of the bathroom. Took Nurisng student and SUPERVISOR [employer] EDUCATION to Put Pt back to bed as Pt was weak.
[2024-11-25 11:12] VITALS: BP 165/91
[2024-11-25] MEDS ORDERED: Nystatin 100,000 Unit/ML Susp 5 ML UDC MT SCH (13:00)
[2024-11-25 15:52] VITALS: BP 143/84
--- NOTE | 2024-11-25 17:35 | NUR ---
ATTEMPTED VISIT WITH PT. PT WAS IN BED, HE AWAKENED WITH VERBLA STIMULI BUT WAS UBALE TO STAY ALERT ENOUGH TO HAVE MEANINGFUL CONVERSATION. DISCUSSED CARE WITH PRIMARY RN. SHE HAS NO CONCERNS FOR PC RN AT THIS TIME.
[2024-11-25] MEDS ORDERED: Rivaroxaban 10 MG Tab PO SCH (18:00)
--- NOTE | 2024-11-25 18:25 | NUR ---
SHIFT SUMMARY; ASSUMED CARE AT 0700. A/A/OX2-3. INTERMITANT CONFUSION. CIWA'S 8-12, MEDICATED PER EMAR. REPOSITIONS SELF IN BED, 2P ASSIST TO BSC. CONDOM CATH INPLACE DRAINING MAXWELL URINE TO GRAVITY BAG. VSS, HEPARIN DC'D AT 1800 AND XARELTO STARTED. 4L 02 VIA NC, SATS 94%, DENIES CP. WILL CONTINUE TO MONITOR AND TREAT UNTIL REPORT GIVEN TO NOC SHIFT RN.
[2024-11-25 19:42] VITALS: BP 167/92
[2024-11-25] MEDS ORDERED: Doxycycline Hyclate 100 MG TAB PO SCH (21:00)
[2024-11-25] MEDS ORDERED: Lactobacil 2-S.Thermo-Bifido 1 1 Cap PO SCH (21:00)
[2024-11-26 01:33] VITALS: BP 150/80
[2024-11-26 04:31] VITALS: BP 148/72
[2024-11-26 04:44] LABS: BASOPHILS ABSOLUTE AUTO 0.02 K/mm3 (0.00-0.23); BASOPHILS PERCENT AUTO 0 % (0-2); EOSINOPHILS ABSOLUTE AUTO 0.05 K/mm3 (0.00-0.68); EOSINOPHILS PERCENT AUTO 1 % (0-6); Hemoglobin 16.3 g/dL (13.5-17.5); IMMATURE GRAN ABSOLUTE AUTO 0.04 K/mm3 (0.00-0.10); IMMATURE GRAN PERCENT AUTO 1 % (0-1); LYMPHOCYTES ABSOLUTE AUTO 0.99 K/mm3 (0.84-5.20); LYMPHOCYTES PERCENT AUTO 11 % (21-46); MONOCYTES ABSOLUTE AUTO 0.93 K/mm3 (0.16-1.47); MONOCYTES PERCENT AUTO 11 % (4-13); Mean Corpuscular HGB 30.3 pg (26.0-34.0); Mean Corpuscular HGB Conc 32.6 g/dL (31.5-36.5); Mean Corpuscular Volume 93 fL (80-100); Mean Platelet Volume 10.3 fL (9.1-12.4); NEUTROPHILS ABSOLUTE AUTO 6.66 K/mm3 (1.96-9.15); NEUTROPHILS PERCENT AUTO 77 % (41-73); Platelet Count 250 K/mm3 (150-400); RDW Standard Deviation 44.4 fL (35.1-46.3); Red Blood Cell Count 5.38 M/mm3 (4.30-5.90); White Blood Cell Count 8.69 K/mm3 (4.00-11.30)
[2024-11-26 05:08] LABS: Albumin, Blood 2.9 g/dL (3.4-5.0); Albumin/Globulin Ratio 0.7 (0.8-1.8); Bun/Creatinine Ratio 18.9 (12.0-20.0); Calcium, Blood 9.5 mg/dL (8.5-10.1); Creatinine, Blood 0.58 mg/dL (0.60-1.20); Phosphorus, Blood 2.6 mg/dL (2.5-4.9); Potassium, Blood 4.6 mmol/L (3.5-5.5); Total Protein, Blood 6.9 g/dL (6.4-8.2)
--- NOTE | 2024-11-26 06:53 | NUR ---
SHIFT SUMMARY: PT IS A&O TO SELF AND PLACE. FREQUENTLY REORIENTING PT TO SITUATION. VSS ON 4L HFNC[address] ST IN THE 100'S. AT BEGINNING OF SHIFT PT WAS LETHARGIC, NOT ABLE TO KEEP EYES OPEN, NOT ABLE TO ANSWER ANY ORIENTATION QUESTIONS. O2 SATURATION WAS 88% ON 9L OXY MASK. AWARE. AROUND MN, PT WAS MORE AWAKE AND ABLE TO FOLLOW COMMANDS. THIS RN DID NOT FIND IT NECESSARY TO PERFORM ANY CIWAS. THIS RN DID NOT ADMINISTER ANY ATIVAN THIS SHIFT. PT IS STILL HAVING HALLUCINATIONS. FREQUENTLY REORIENTING PT TO PLACE AND SITUATION. C/O PAIN IN HIS HANDS. TOLERATING A SOFT AND BITE SIZE DIET. TAKES PILLS WHOLE, ONE AT A TIME WITH FLUID. VOIDING LARGE AMOUNTS OF MAXWELL COLORED URINE VIA CONDOM CATH. CURRENTLY ONLY HAS BRIEF ON. PT WAS INCONTINENT OF BOWEL. X2 ASSIST TO BSC WITH FWW AND CONSTANT QUEING. PT HAD A LARGE LOOSE, BROWN BM IN THE BSC. BED IN LOWEST POSITION, CALL LIGHT WITHIN REACH. BED ALARM SET FOR PT'S SAFETY.
[2024-11-26 07:35] VITALS: BP 149/89
[2024-11-26] MEDS ORDERED: Thiamine HCl 100 MG Tab PO SCH (09:00)
[2024-11-26] MEDS ORDERED: AmLODIPine Besylate 5 MG Tab PO SCH (09:00)
[2024-11-26] MEDS ORDERED: Folic Acid 1 MG TAB PO SCH (09:00)
[2024-11-26] MEDS ORDERED: Furosemide 10 MG / ML 2ML Vial IV ONE (15:20)
--- NOTE | 2024-11-26 15:35 | NUR ---
SHIFT SUMMARY; ASSUMED CARE AT 0700. A/A/OX3 WITH INTERMITANT CONFUSION. SAT IN CHAIR MOST OF DAY, FEEDING SELF WITHOUT DIFFICULTY. 4L 02 VIA NC TO MAINTAIN SATS OF >94%. NO S/S OF ETOH WITHDRAWL. VSS, REPORT GIVEN TO ABDIEL HOLLAND TO ASSUME CARE.
[2024-11-26 16:09] VITALS: BP 157/93
--- NOTE | 2024-11-26 16:25 | NUR ---
RECEIVED REPORT FROM MAIK MEADOWS AND ASSUMED CARE OF PT AT 1605.
--- NOTE | 2024-11-26 17:10 | NUR ---
ASSUMED CARE NOTE ASSUMED CARE OF PT AT 1605. PT A&OX3, VSS, AMB W/ ASSIST, TOLERATING PO, VOIDING, AND DENIED PAIN. PT ORIENTED TO ROOM AND CALL LIGHT. CALL LIGHT PLACED WITHIN REACH.
--- NOTE | 2024-11-26 17:37 | NUR ---
SHIFT SUMMARY NO CHANGES FROM PREVIOUS NOTE. CALL LIGHT WITHIN REACH AND ABLE TO MAKE NEEDS KNOWN.
[2024-11-26 21:03] VITALS: BP 143/91
[2024-11-27 00:21] VITALS: BP 154/90
[2024-11-27 04:48] VITALS: BP 137/90
[2024-11-27 07:18] VITALS: BP 168/96
[2024-11-27] MEDS ORDERED: AMLO10 PO (11:07)
[2024-11-27] MEDS ORDERED: FOLI1 PO (11:07)
[2024-11-27] MEDS ORDERED: NYSTATIN100000 U10 MT (11:09)
[2024-11-27] MEDS ORDERED: XARELTO10 M1 PO (11:16)
[2024-11-27] MEDS ORDERED: XARELTO10 M2 PO (11:18)
[2024-11-27] MEDS ORDERED: B-1100 M1 PO (11:18)
[2024-11-27] MEDS ORDERED: B-1100 M2 PO (11:19)
--- NOTE | 2024-11-27 13:00 | NUR ---
DISCHARGE NOTE PT A&OX4. PT FORGETFUL AT TIMES PT ADMITTED DUE TO CHEST PAIN. PT DENIED CHEST PAIN THIS AM. GOT ON SHIFT, PT EAGER TO GO HOME THIS AM, PT REPORTS WANTING TO BE TRANSFERED TO [facility]. PT TOOK OFF TELE. CALLED DR. STANLEY DUE TO PT WANTING TO BE DISCHARGED. DR. STANLEY. "ORDERED HOME O2 EVAL, SAID TRANSFER TO [facility] ISNT NESSICARY." PT WILLING TO STAY PUT. RESPIRATORY CARE CAME TO DO O2 EVAL, REPORTED "PT CAN BE ON ROOM AIR. NO O2 NEEDED" MEDS FAXED TO PHARMACY DISCHARGE INSTRUCTIONS/MEDS GONE OVER BY CHARGE NURSE. WALKER DELIVERED TO PT. IV REMOVED. PT LEFT PHONE GRANITE POLISHER, CALLED AND LEFT VOICE MESSAGE. PT ESCORTED OUT BY WHEELCHAIR.
== END 2024-11-27 11:27 | disposition home health service (06) | DRG 207 ==
LOC: ER 01:44 → ERHOLD 01:45 → MEDS 12:44 → ICUE 11-19 11:17 → PCU 11-24 17:11 → MEDS 11-26 16:08
PROVIDERS: Hospitalist; Internal Medicine; Internal Medicine Critical Care Medicine; Student in an Organized Health Care Education/Training Program; ADMIT Student in an Organized Health Care Education/Training Program
PROC: 5A1955Z Respiratory Ventilation, Greater than 96 Consecutive Hours (ICD-10-PCS; principal; 2024-11-19)
PROC: 0BH17EZ Insertion of Endotracheal Airway into Trachea, Via Natural or Artificial Opening (ICD-10-PCS; 2024-11-19)
PROC: 5A09357 Assistance with Respiratory Ventilation, Less than 24 Consecutive Hours, Continuous Positive Airway Pressure (ICD-10-PCS; 2024-11-19)
DX: J95.851 Ventilator associated pneumonia (principal); J96.01 Acute respiratory failure with hypoxia; G92.8 Other toxic encephalopathy; J96.02 Acute respiratory failure with hypercapnia; I50.31 Acute diastolic (congestive) heart failure; I16.1 Hypertensive emergency; F10.239 Alcohol dependence with withdrawal, unspecified; I11.0 Hypertensive heart disease with heart failure; Z87.891 Personal history of nicotine dependence; I27.20 Pulmonary hypertension, unspecified; M54.9 Dorsalgia, unspecified; G89.29 Other chronic pain; Z88.5 Allergy status to narcotic agent; Z91.041 Radiographic dye allergy status; Z88.8 Allergy status to other drugs, medicaments and biological substances; Z79.899 Other long term (current) drug therapy; E66.9 Obesity, unspecified; I50.810 Right heart failure, unspecified; E83.39 Other disorders of phosphorus metabolism; G47.33 Obstructive sleep apnea (adult) (pediatric); Z68.28 Body mass index [BMI] 28.0-28.9, adult
CPT/HCPCS: 0528U; 31500; 36415; 36600; 51702; 70450; 71045; 78582; 80048; 80053; 80061; 82140; 82803; 82947; 83036; 83690; 83735; 83880; 84100; 84443; 84484; 85025; 85027; 85379; 85520; 85610; 85730; 87040; 87070; 87077; 87205; 87428-QW; 93005; 93010; 93306; 93970; 94002; 94003; 94660; 94760; 94761; 94762; 97116; 97161; 97166; 97530; 97535; 99285-25; A9270; A9540; G0378; J0696; J1644; J1650; J1940; J2060; J2250; J2405; J2470; J2704; J3010; J3411; J3475; J3480; J7050; J7060